=== PATIENT | male | born 1955 | race Caucasian/White ===

== ENCOUNTER 2019-12-04 10:24 | Emergency (ER) | payer MEDICARE ==
[~2019-12-04] VITALS: Ht 185.4 cm; Wt 108.4 kg
[2019-12-04 11:34] VITALS: BP 138/78
[2019-12-04] MEDS ORDERED: PRED10TA PO (11:38)
== END 2019-12-04 11:57 | disposition home or self-care (01) ==
LOC: ER 10:24
DX: M79.2 Neuralgia and neuritis, unspecified (principal); G89.29 Other chronic pain; R10.31 Right lower quadrant pain; R60.9 Edema, unspecified; Z79.899 Other long term (current) drug therapy
CPT/HCPCS: 74176; 99284

== ENCOUNTER 2020-07-12 08:27 | Emergency (ER) | payer MEDICARE ==
[~2020-07-12] VITALS: Ht 185.4 cm; Wt 109.1 kg
[~2020-07-12 08:27] MED LIST: PRED10TA PO
[2020-07-12 08:36] VITALS: BP 154/86
== END 2020-07-12 09:38 | disposition home or self-care (01) ==
LOC: ER 08:28
DX: S63.92XA Sprain of unspecified part of left wrist and hand, initial encounter (principal); Z79.899 Other long term (current) drug therapy; W19.XXXA Unspecified fall, initial encounter; Y93.89 Activity, other specified; Y92.89 Other specified places as the place of occurrence of the external cause; Y99.8 Other external cause status
CPT/HCPCS: 29125; 73130; 99283

== ENCOUNTER 2020-11-23 10:20 | Emergency (ER) | payer MEDICARE ==
[~2020-11-23] VITALS: Ht 185.4 cm; Wt 108.9 kg
[2020-11-23 11:46] LABS: BASOPHILS % (AUTO) 0.6 % (0-1); EOSINOPHILS # (AUTO) 0.1 X10'3 (0-0.9); HEMATOCRIT 41.8 % (42.0-52.0); HEMOGLOBIN 14.1 g/dl (14.0-17.9); LYMPHOCYTES # (AUTO) 1.1 X10'3 (1.1-4.8); LYMPHOCYTES % (AUTO) 22.6 % (21-51); MEAN CORPUSCULAR HEMOGLOBIN 32.5 PG (27.0-31.0); MEAN CORPUSCULAR HGB CONC 33.6 g/dL (33.0-36.5); MEAN CORPUSCULAR VOLUME 96.7 FL (78-98); MEAN PLATELET VOLUME 10.2 FL (7.4-10.4); MONOCYTES # (AUTO) 0.5 X10'3 (0-0.9); MONOCYTES % (AUTO) 10.6 % (2-12); NEUTROPHILS # (AUTO) 3.2 X10'3 (1.8-7.7); NEUTROPHILS % (AUTO) 63.2 % (42-75); PLATELET COUNT 161 X10'3 (140-440); RED BLOOD COUNT 4.32 X10'6 (4.70-6.10); RED CELL DISTRIBUTION WIDTH 12.8 % (11.5-14.5)
[2020-11-23 11:55] LABS: ALANINE AMINOTRANSFERASE 24 U/L (12-78); ALBUMIN 3.8 G/DL (3.4-5.0); ALBUMIN/GLOBULIN RATIO 1.1 (1.1-1.5); ALKALINE PHOSPHATASE 47 IU/L (46-116); ANION GAP 13 (8-16); BILIRUBIN,TOTAL 1.4 MG/DL (0.1-1.0); BLOOD UREA NITROGEN 21 MG/DL (7-18); BUN/CREATININE RATIO 24.1 (5.4-32.0); CALCIUM 8.8 MG/DL (8.5-10.1); CHLORIDE 108 MMOL/L (99-107); CREATININE 0.87 MG/DL (0.60-1.10); GLUCOSE 90 MG/DL (70-104); LIPASE 218 U/L (73-393); SODIUM 144 MMOL/L (135-145); TOTAL CARBON DIOXIDE 22.8 MMOL/L (24-32); TOTAL PROTEIN 7.3 G/DL (6.4-8.2); eGFR 88 ML/MIN
[2020-11-23 12:02] LABS: ASPARTATE AMINO TRANSFERASE 25 U/L (10-37); POTASSIUM 4.1 MMOL/L (3.5-5.1)
[2020-11-23] MEDS ORDERED: iohexol 300mg/ml 100ml inj. ONE (12:05)
[2020-11-23 13:13] VITALS: BP 153/91
== END 2020-11-23 13:15 | disposition home or self-care (01) ==
LOC: ER 10:21
DX: R19.01 Right upper quadrant abdominal swelling, mass and lump (principal); G89.29 Other chronic pain; Z98.890 Other specified postprocedural states; Z79.899 Other long term (current) drug therapy
CPT/HCPCS: 36415; 74177; 80053; 83690; 85025; 99285; Q9967

== ENCOUNTER 2020-12-13 13:37 | Emergency (ER) | payer MEDICARE ==
[~2020-12-13] VITALS: Ht 185.4 cm; Wt 111.7 kg
[2020-12-13 17:31] VITALS: BP 155/87
== END 2020-12-13 17:32 | disposition home or self-care (01) ==
LOC: ER 13:38
DX: K46.9 Unspecified abdominal hernia without obstruction or gangrene (principal); G89.29 Other chronic pain; Z98.890 Other specified postprocedural states; Z79.899 Other long term (current) drug therapy
CPT/HCPCS: 99281

== ENCOUNTER 2021-01-20 05:26 | Day surgery (SDC) | payer MEDICARE ==
[2021-01-13 16:18] LABS: CLARITY,URINE CLEAR (Clear); COLOR,URINE YELLOW (Yellow); GLUCOSE, URINE NEGATIVE (Neg); KETONES,URINE NEGATIVE (Neg); LEUKOCYTE ESTERASE ,URINE NEGATIVE (Neg); NITRITES, URINE NEGATIVE (Neg); OCCULT BLOOD,URINE TRACE-INTACT (Neg); PROTEIN,URINE NEGATIVE (Neg); UROBILINOGEN,URINE 0.2 E.U/dL (0.2-1.0)
[2021-01-13 16:21] LABS: BASOPHILS % (AUTO) 0.5 % (0-1); EOSINOPHILS # (AUTO) 0.2 X10'3 (0-0.9); EOSINOPHILS % (AUTO) 3.1 % (0-6); LYMPHOCYTES # (AUTO) 1.2 X10'3 (1.1-4.8); LYMPHOCYTES % (AUTO) 22.4 % (21-51); MEAN CORPUSCULAR HEMOGLOBIN 33.3 PG (27.0-31.0); MEAN CORPUSCULAR HGB CONC 33.9 g/dL (33.0-36.5); MEAN CORPUSCULAR VOLUME 98.2 FL (78-98); MEAN PLATELET VOLUME 10.5 FL (7.4-10.4); MONOCYTES # (AUTO) 0.7 X10'3 (0-0.9); MONOCYTES % (AUTO) 12.6 % (2-12); NEUTROPHILS # (AUTO) 3.4 X10'3 (1.8-7.7); NEUTROPHILS % (AUTO) 61.4 % (42-75); PRE OP HEMATOCRIT 41.4 % (42.0-52.0); PRE OP PLATELET COUNT 165 X10'3 (140-440); RED BLOOD COUNT 4.21 X10'6 (4.70-6.10); RED CELL DISTRIBUTION WIDTH 12.9 % (11.5-14.5)
[2021-01-13 16:26] LABS: UA COLLECTION TYPE CLN CATCH MIDSTREAM
[2021-01-13 16:29] LABS: BACTERIA,URINE NONE SEEN /HPF (Neg); MUCUS STRANDS MANY /LPF (Neg); SQUAMOUS EPITHELIAL CELL,UR FEW /LPF (FEW); WBC,URINE 0-4 /HPF (0-4)
[2021-01-13 16:31] LABS: PARTIAL THROMBOPLASTIN TIME 28 SECONDS (22-32)
[2021-01-13 16:34] LABS: ALBUMIN 4.1 G/DL (3.4-5.0); ALBUMIN/GLOBULIN RATIO 1.4 (1.1-1.5); ALKALINE PHOSPHATASE 53 IU/L (46-116); BLOOD UREA NITROGEN 22 MG/DL (7-18); BUN/CREATININE RATIO 19.6 (5.4-32.0); CALCIUM 8.8 MG/DL (8.5-10.1); CHLORIDE 108 MMOL/L (99-107); CREATININE 1.12 MG/DL (0.60-1.10); PRE OP ALT 23 U/L (30-65); PRE OP ANION GAP 9 (8-16); PRE OP AST 13 U/L (10-37); PRE OP BILIRUB, TOTAL 1.4 MG/DL (0.0-1.0); PRE OP GLUCOSE 89 MG/DL (70-104); PRE OP POTASSIUM 3.5 MMOL/L (3.4-5.1); PRE OP SODIUM 142 MMOL/L (135-145); TOTAL CARBON DIOXIDE 24.9 MMOL/L (24-32); TOTAL PROTEIN 7.1 G/DL (6.4-8.2); eGFR 66 ML/MIN
[2021-01-20] VITALS (32 sets, daily range): BP systolic 136–171; BP diastolic 73–110
[~2021-01-20] VITALS: Ht 185.4 cm; Wt 114.8 kg
[~2021-01-20 05:26] MED LIST changes: +LISI1TAB51 PO; +PRAM1.5T7 PO; -PRED10TA PO; +PREG100C55 PO; +ROSU10TA28 PO; +ringers solution, lacted 1,000 ML IV SCH
[2021-01-20] MEDS ORDERED: famotidine 20mg tablet PO ONE (05:30)
[2021-01-20] MEDS ORDERED: cefazolin/dext.iso 2gm/100ml IV ONE (05:30)
[2021-01-20] MEDS ORDERED: BUPIVAcaine/PF 2.5mg/ml (0.25%) 10ml vial ONE (06:42)
[2021-01-20] MEDS ORDERED: fentaNYL /PF 50mcg/ml 5ml ampule ONE (08:51)
[2021-01-20] MEDS ORDERED: midazolam 1 mg/ML 2ml injection ONE (08:51)
[2021-01-20] MEDS ORDERED: rocuronium 10mg/ml inj IV ONE ×2 (08:52→11:13)
[2021-01-20] MEDS ORDERED: sevoflurane 250ml liquid IH ONE (08:52)
[2021-01-20] MEDS ORDERED: ringers solution, lacted 1,000 ML IV SCH (10:55)
[2021-01-20] MEDS ORDERED: meperidine/PF 25mg/ml syringe IV PRN ×2 (10:55)
[2021-01-20] MEDS ORDERED: ondansetron/PF 4mg/2ml inj IV PRN (10:55)
[2021-01-20] MEDS ORDERED: morphine 2 MG/ML inj. syringe IV PRN (10:55)
[2021-01-20] MEDS ORDERED: proCHLORperazine 10 MG/2 ml inj IV PRN (10:55)
[2021-01-20] MEDS ORDERED: morphine 4 MG/ML inj SYRINge IV PRN (10:55)
[2021-01-20] MEDS ORDERED: dexamethasone sod phosphate 4mg/ml inj. ONE (11:13)
[2021-01-20] MEDS ORDERED: neostigmine methylsulfate 1 MG/ML 10ml vial ONE (11:13)
[2021-01-20] MEDS ORDERED: acetaminophen 1,000mg/100ml IV 100 ML IV ONE (11:13)
[2021-01-20] MEDS ORDERED: propofol inj 20 ML IV ONE (11:13)
[2021-01-20] MEDS ORDERED: ondansetron/PF 4mg/2ml inj ONE (11:13)
[2021-01-20] MEDS ORDERED: glycopyrrolate 0.2mg/ml inj ONE (11:16)
--- NOTE | 2021-01-20 11:44 | NUR ---
Received from OR via [g PCS.BED], accompanied by Anesthesiologist [] and report given by Anesthesiolgist. Addendum: 01/20/21 at 1152 by Roro Gustafson RN, RN Amended: Links added.
[2021-01-20] MEDS: meperidine/PF 25mg/ml syringe IV PRN ×3 (12:03→15:42)
--- NOTE | 2021-01-20 14:10 | NUR ---
PT BLADDER SCANNED AND HAS 28MLS IN BLADDER Addendum: 01/20/21 at 1447 by Roro Gustafson RN, RN Amended: Links added.
--- NOTE | 2021-01-20 14:43 | NUR ---
PT HAS BEEN BLADDER SCANNED AND HAS 96 MLS IN BLADDER. Addendum: 01/20/21 at 1447 by Roro Gustafson RN, RN Amended: Links added.
[2021-01-20] MEDS ORDERED: HYDROcodone/acetaminophen 10/325mg tab PO STA (16:10)
--- NOTE | 2021-01-20 16:24 | NUR ---
PATIENT A&OX4, PT PAIN 09/26. RX WAS FAXED TO PT'S PHARMAC[facility]. , V/S STABLE, IV REMOVED. I HAVE REVIEWED D/C ORDERS WITH PATIENT AND PT'S AND THEY HAVE VERBALIZED UNDERSTANDING. PT AND PT'S UNDERSTAND THAT PT HAS SLEEP APNEA AND PT IS NOT TO BE LEFT ALONE AT THIS TIME. PATIENT D/C HOME WITH ALL BELONGINGS AND GAVE TRANSPORT. Addendum: 01/20/21 at 1814 by Roro Gustafson RN, RN Amended: Links added.
== END 2021-01-20 17:26 | disposition home or self-care (01) ==
LOC: PAS 05:26
PROVIDERS: ATTEND Surgery
DX: K45.8 Other specified abdominal hernia without obstruction or gangrene (principal); D68.51 Activated protein C resistance; G47.30 Sleep apnea, unspecified; I10 Essential (primary) hypertension; E66.9 Obesity, unspecified; Z68.33 Body mass index [BMI] 33.0-33.9, adult; G89.29 Other chronic pain; G25.81 Restless legs syndrome; F17.290 Nicotine dependence, other tobacco product, uncomplicated; Z79.899 Other long term (current) drug therapy; Z96.651 Presence of right artificial knee joint; Z98.890 Other specified postprocedural states; Z86.718 Personal history of other venous thrombosis and embolism
CPT/HCPCS: 36415; 49659; 80053; 81001; 82948; 85025; 85610; 85730; 86885; 86900; 86901; 93005; C1713; C1758; C1781; J0131; J1100; J2175; J2250; J2405; J2704; J2710; J3010; J3490; Z7506; Z7508; A4215; A4618; J7120

== ENCOUNTER 2021-04-28 11:06 | Day surgery (SDC) | payer MEDICARE ==
[~2021-04-28] VITALS: Ht 185.4 cm; Wt 111.5 kg
[2021-04-28 11:00] VITALS: BP 141/82
[~2021-04-28 11:06] MED LIST changes: -ringers solution, lacted 1,000 ML IV SCH
[2021-04-28] MEDS ORDERED: normal saline 1000ml 1,000 ML IV SCH (11:25)
[2021-04-28] MEDS ORDERED: midazolam 1 mg/ML 2ml injection ONE (13:36)
[2021-04-28] MEDS ORDERED: fentaNYL/PF 50MCG/1 ML 2ML syringe ONE (13:36)
[2021-04-28 14:00] VITALS: BP 144/78
[2021-04-28 14:12] VITALS: BP 133/79
== END 2021-04-28 14:30 | disposition home or self-care (01) ==
LOC: SSTAY O 11:06
PROVIDERS: ATTEND Radiology Vascular & Interventional Radiology
DX: R59.0 Localized enlarged lymph nodes (principal); Z53.8 Procedure and treatment not carried out for other reasons
CPT/HCPCS: 73200; J2250; J3010

== ENCOUNTER 2021-05-24 08:12 | Outpatient (CLI) | payer MEDICARE | END 2021-05-24 23:59 | disposition home or self-care (01) | LOC: CARD DIAG 08:12 | PROVIDERS: ATTEND Nurse Practitioner | DX: I34.0 Nonrheumatic mitral (valve) insufficiency (principal); I10 Essential (primary) hypertension | CPT/HCPCS: 93306 ==

== ENCOUNTER 2022-01-09 19:14 | Emergency (ER) | payer MEDICARE ==
[~2022-01-09] VITALS: Ht 185.4 cm; Wt 113.6 kg
[2022-01-09 23:38] LABS: BASOPHILS % (AUTO) 0.6 % (0-1); EOSINOPHILS # (AUTO) 0.2 X10'3 (0-0.9); EOSINOPHILS % (AUTO) 3.5 % (0-6); HEMOGLOBIN 14.1 g/dl (14.0-17.9); LYMPHOCYTES # (AUTO) 1.5 X10'3 (1.1-4.8); LYMPHOCYTES % (AUTO) 23.2 % (21-51); MEAN CORPUSCULAR HEMOGLOBIN 33.5 PG (27.0-31.0); MEAN CORPUSCULAR HGB CONC 34.5 g/dL (33.0-36.5); MEAN PLATELET VOLUME 9.2 FL (7.4-10.4); MONOCYTES # (AUTO) 0.7 X10'3 (0-0.9); MONOCYTES % (AUTO) 10.8 % (2-12); NEUTROPHILS # (AUTO) 4.1 X10'3 (1.8-7.7); NEUTROPHILS % (AUTO) 61.9 % (42-75); PLATELET COUNT 200 X10'3 (140-440); RED BLOOD COUNT 4.22 X10'6 (4.70-6.10); RED CELL DISTRIBUTION WIDTH 12.5 % (11.5-14.5); WHITE BLOOD COUNT 6.6 X10'3 (4.5-11.0)
[2022-01-09 23:54] LABS: ALANINE AMINOTRANSFERASE 29 U/L (12-78); ALBUMIN/GLOBULIN RATIO 1.2 (1.1-1.5); ALKALINE PHOSPHATASE 49 IU/L (46-116); ANION GAP 5 (8-16); ASPARTATE AMINO TRANSFERASE 18 U/L (10-37); BILIRUBIN,TOTAL 0.7 MG/DL (0.1-1.0); BLOOD UREA NITROGEN 15 MG/DL (7-18); BUN/CREATININE RATIO 12.6 (5.4-32.0); CALCIUM 9.1 MG/DL (8.5-10.1); CHLORIDE 106 MMOL/L (99-107); CREATININE 1.19 MG/DL (0.60-1.10); GLUCOSE 96 MG/DL (70-104); MAGNESIUM 2.2 MG/DL (1.5-2.4); POTASSIUM 3.8 MMOL/L (3.5-5.1); SODIUM 141 MMOL/L (135-145); TOTAL CARBON DIOXIDE 29.7 MMOL/L (24-32); TOTAL PROTEIN 7.4 G/DL (6.4-8.2); eGFR 61 ML/MIN
[2022-01-10 00:55] LABS: CLARITY,URINE CLEAR (Clear); COLOR,URINE YELLOW (Yellow); GLUCOSE, URINE NEGATIVE (Neg); KETONES,URINE NEGATIVE (Neg); LEUKOCYTE ESTERASE ,URINE NEGATIVE (Neg); NITRITES, URINE NEGATIVE (Neg); OCCULT BLOOD,URINE SMALL (Neg); PH,URINE 5.5 (4.8-8.0); PROTEIN,URINE NEGATIVE (Neg); UROBILINOGEN,URINE 0.2 E.U/dL (0.2-1.0)
[2022-01-10 01:01] LABS: UA COLLECTION TYPE URINAL
[2022-01-10 01:06] LABS: BACTERIA,URINE NONE SEEN /HPF (Neg); MUCUS STRANDS MANY /LPF (Neg); SQUAMOUS EPITHELIAL CELL,UR FEW /LPF (FEW); WBC,URINE 0-4 /HPF (0-4)
[2022-01-10 01:26] LABS: URINE AMPHETAMINE SCREEN NEGATIVE (Neg); URINE BARBITUATE SCREEN NEGATIVE (Neg); URINE BENZODIAZEPINES SCREEN NEGATIVE (Neg); URINE CANNABINOID SCREEN NEGATIVE (Neg); URINE COCAINE SCREEN POSITIVE (Neg); URINE METHADONE SCREEN NEGATIVE (Neg); URINE OPIATE SCREEN NEGATIVE (Neg); URINE PHENCYCLIDINE SCREEN NEGATIVE (Neg)
--- NOTE | 2022-01-10 07:14 | NUR ---
CALLED [facility] IN REGARDS TO POSSIBLE TRANSFER, NO BEDS AVAILABLE AT THIS TIME, TRANSFER DENIED. MOVING FORWARD, CALLING [facility].
--- NOTE | 2022-01-10 08:00 | NUR ---
MRI SCREENING FORM FAXED @0271
[2022-01-10] MEDS ORDERED: LORazepam 2 mg/ml vial IV ONE (08:15)
--- NOTE | 2022-01-10 08:16 | NUR ---
MRI at bedside, patient advised he is claustrophobic. ER MD to order ativan
--- NOTE | 2022-01-10 10:57 | NUR ---
CALLED [facility] FOR CONSULTATION IN REGARDS TO MRI RESULTS, PER DR. FELIX
[2022-01-10] MEDS ORDERED: PRED10TA23 PO (12:03)
[2022-01-10] MEDS ORDERED: predniSONE 20 mg tablet PO ONE (12:05)
--- NOTE | 2022-01-10 12:05 | NUR ---
FAXED FACE SHEET TO DR. CROOKS, ALSO BURNT DISCS FOR PT TO TAKE TO , PER
[2022-01-10 13:27] VITALS: BP 151/86
== END 2022-01-10 13:28 | disposition home or self-care (01) ==
LOC: ER 19:15
DX: M54.10 Radiculopathy, site unspecified (principal); Z20.822 Contact with and (suspected) exposure to COVID-19; M51.37 Other intervertebral disc degeneration, lumbosacral region; I10 Essential (primary) hypertension; G89.29 Other chronic pain; M54.50 Low back pain, unspecified; F17.200 Nicotine dependence, unspecified, uncomplicated
CPT/HCPCS: 36415; 71045; 72148; 74177; 80053; 80305; 81001; 83735; 85025; 85610; 87635; 93005; 96374; 97116; 97161; 99285; C9803; J2060; J3490; J7512

== ENCOUNTER 2023-01-14 18:16 | Emergency (ER) | payer MEDICARE ==
[~2023-01-14] VITALS: Ht 185.4 cm; Wt 107.6 kg
[2023-01-14 18:30] VITALS: BP 206/106; PULSE 72; TEMP 99; O2SAT 98
[2023-01-14] MEDS ORDERED: ketorolac trometh. 30mg/ml inj. IM ONE (19:10)
[2023-01-14] MEDS ORDERED: ketorolac tromethamine 15mg/ml inj. IM ONE (19:20)
[2023-01-14] MEDS ORDERED: HYDR-3965 PO (20:17)
[2023-01-14] MEDS ORDERED: CELE-193 PO (20:17)
[2023-01-14 20:37] VITALS: RESP 20
== END 2023-01-14 20:44 | disposition home or self-care (01) ==
LOC: ER 18:16
DX: S76.211A Strain of adductor muscle, fascia and tendon of right thigh, initial encounter (principal); I10 Essential (primary) hypertension; E78.00 Pure hypercholesterolemia, unspecified; F17.200 Nicotine dependence, unspecified, uncomplicated; M25.561 Pain in right knee; Z79.2 Long term (current) use of antibiotics; Z79.899 Other long term (current) drug therapy; X58.XXXA Exposure to other specified factors, initial encounter; Y93.89 Activity, other specified; Y92.89 Other specified places as the place of occurrence of the external cause; Y99.8 Other external cause status
CPT/HCPCS: 73502; 73560; 96372; 99284; J1885; A6449

== ENCOUNTER 2023-11-07 07:54 | Emergency (ER) | payer OTHER ==
[~2023-11-07] VITALS: Ht 185.4 cm; Wt 118.0 kg
[~2023-11-07 07:54] MED LIST changes: -LISI1TAB51 PO; -PREG100C55 PO; +PREG100C56 PO; -ROSU10TA28 PO
[2023-11-07 07:59] VITALS: BP 194/99; PULSE 62; RESP 18; TEMP 98.4; O2SAT 98
== END 2023-11-07 08:50 | disposition home or self-care (01) ==
LOC: ER 07:54
DX: Z48.02 Encounter for removal of sutures (principal); E78.00 Pure hypercholesterolemia, unspecified; I10 Essential (primary) hypertension; G89.29 Other chronic pain; M54.9 Dorsalgia, unspecified
CPT/HCPCS: 99281

== ENCOUNTER 2024-11-13 16:55 | Emergency (ER) | payer MEDICARE ==
[~2024-11-13] VITALS: Ht 185.4 cm; Wt 129.6 kg
[2024-11-13 16:58] VITALS: BP 191/101; PULSE 79; TEMP 97.4; O2SAT 95
--- NOTE | 2024-11-13 17:45 | RADIOLOGY REPORT ---
EXAM: XR Lumbosacral Spine, 2 or 3 Views CLINICAL INDICATION: low back pain TECHNIQUE: Frontal and lateral views of the lumbar spine and sacrum. COMPARISON: None FINDINGS: VERTEBRAE: Multilevel endplate degenerative changes and disc disease of L3-S1. Normal alignment. No acute fracture. SACRUM/COCCYX: Unremarkable as visualized. No acute fracture. DISC SPACES: No acute findings. No significant narrowing. SOFT TISSUES: Unremarkable. VASCULATURE: Scattered calcified atherosclerotic disease of aorta. OTHER FINDINGS: . . IMPRESSION: No acute fracture.
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
[2024-11-13] MEDS ORDERED: HYDR-3965 PO (18:43)
[2024-11-13] MEDS ORDERED: GABA300C PO (18:43)
[2024-11-13] MEDS: gabapentin 400mg capsule PO STA (18:44)
[2024-11-13] MEDS: HYDROcodone/acetaminophen 5mg/325mg tablet PO STA (20:32)
[2024-11-13] MEDS: acetaminophen 325mg tablet PO STA (20:33)
[2024-11-13 20:35] VITALS: RESP 18
[2024-11-13] MEDS: ketorolac trometh 15mg/ml vial 15 MG/ML ML IM STA (20:35)
== END 2024-11-13 20:40 | disposition home or self-care (01) ==
LOC: ER 16:55
DX: S33.5XXA Sprain of ligaments of lumbar spine, initial encounter (principal); E78.00 Pure hypercholesterolemia, unspecified; I10 Essential (primary) hypertension; W19.XXXA Unspecified fall, initial encounter; Y93.89 Activity, other specified; Y92.89 Other specified places as the place of occurrence of the external cause; Y99.8 Other external cause status
CPT/HCPCS: 72100; 96372; 99283; J1885